=== PATIENT | female | born 1980 | race Caucasian/White ===

== ENCOUNTER 2018-09-13 05:46 | Inpatient (IN) | payer OTHER ==
[2018-09-12 09:38] VITALS: BMI 38.3
[2018-09-13] VITALS (31 sets, daily range): BP systolic 117–136; BP diastolic 55–82; PULSE 65–96; RESP 14–24; Ht 170.2 cm; Wt 114.3 kg
[~2018-09-13] VITALS: Ht 170.2 cm; Wt 114.3 kg
--- NOTE | 2018-09-13 06:48 | HPN ---
Date/Time of Note Date/Time of Note DATE: 09/13/18 TIME: 06:48 Interval H&P Admission Note Pt. seen H&P reviewed: No system changes ROSA TOBAR MD Sep 13, 2018 06:48
[2018-09-13] MEDS ORDERED: GELATIN SIZE 100 SPONGE ONE (06:50)
[2018-09-13] MEDS ORDERED: THROMBIN (BOVINE) 5,000 UNIT VIAL TP ONE (06:51)
[2018-09-13] MEDS ORDERED: BUPIVACAINE 0.25% (MPF) 30 ML INJ ONE (06:51)
[2018-09-13] MEDS ORDERED: POLYMYXIN/BACITRACIN 1L IRRIG ONE (06:51)
[2018-09-13] MEDS ORDERED: LYR75 PO (06:55)
[2018-09-13] MEDS ORDERED: TRAZ-111 PO (06:55)
[2018-09-13] MEDS ORDERED: AMPH20CA PO (06:56)
[2018-09-13] MEDS ORDERED: ALBU18HF INHALATION (06:57)
[2018-09-13] MEDS ORDERED: ROCURONIUM 50 MG INJ ONE ×2 (07:00→07:17)
[2018-09-13] MEDS ORDERED: CEFAZOLIN 2 GM/50 ML (PMX) 50 ML IVPB ONE (07:00)
[2018-09-13] MEDS ORDERED: LACTATED RINGER'S 1,000 ML IV SCH ×2 (07:00)
--- NOTE | 2018-09-13 07:04 | PREAC ---
Date/Time of Note Date/Time of Note DATE: 09/13/18 TIME: 07:02 Anesthesia Eval and Record Evaluation Time Pre-Procedure Interview DATE: 09/13/18 TIME: 07:02 Age 38 Sex female NPO: 8 hrs Preoperative diagnosis stenosis Planned procedure [id number] decompression Past Medical History Past Medical History: Includes Pulm: Asthma Neuro: Peripheral neuropathy Musculoskeletal: Other (ADD ) Surgery & Anesthesia Issues No known issue Meds Anticoagulation: No Beta Nayeli within 24 hr: No Reason Beta Nayeli not given: Pt. not on B-Nayeli Reported Medications Albuterol Sulfate* (Ventolin HFA*) 18 Gm Hfa.aer.ad, 2 PUFF INHALATION Q4H, #1 INHALER 09/13/18 Dextroamphetamine-Amphetamine (Adderall XR) 20 Mg Capsr, 74 MG PO DAILY, CAP 09/13/18 Pregabalin* (Lyrica*) 75 Mg Capsule, 75 MG PO BID, CAP 09/13/18 Trazodone Hcl* (Trazodone Hcl*) 50 Mg Tablet, 50 MG PO QHS, #30 TAB 09/13/18 Current Medications Cefazolin Sodium/ Dextrose 50 ml @ 100 mls/hr PREOP ONCE IVPB Last administered on 09/13/18at 06:45; Admin Dose 100 MLS/HR; Start 09/13/18 at 07:00; Stop 09/13/18 at 07:29 Lactated Ringer's 1,000 ml @ 25 mls/hr Q24H IV Last administered on 09/13/18at 06:46; Admin Dose 25 MLS/HR; Start 09/13/18 at 07:00 Lactated Ringer's 1,000 ml @ 25 mls/hr Q24H IV Last administered on 09/13/18at 06:47; Admin Dose 25 MLS/HR; Start 09/13/18 at 07:00 Meds reviewed: Yes Allergies Coded Allergies: amoxicillin (Verified Allergy, Mild, 09/13/18) hydrocodone (Verified Allergy, Mild, STARK, 09/13/18) oxycodone (Verified Allergy, Mild, STARK, 09/13/18) erythromycin base (Verified Allergy, Unknown, STARK, 09/13/18) latex (Verified Allergy, Unknown, itchy,burning, 09/13/18) Allergies Reviewed: Yes Labs/Studies Labs Reviewed: Reviewed by anesthesiologist Blood Bank Test 09/13/18 05:47 Blood Product Summary Counts test: Negative Pre-procedure Exam Last vitals Vital Signs Date Temp Pulse Resp B/P (MAP) Pulse Ox O2 O2 Flow FiO2 Time Delivery Rate 09/13/18 97.9 72 18 120/65 98 Room Air 06:49 (83) Airway: Adequate mouth opening, Adequate thyromental dist Mallampati: Mallampati I Teeth: Normal Lung: Normal Heart: Normal ASA Physical Status ASA physical status: 2 Emergency: None Pre-operative Attestations Prior to commencing anesthesia and surgery, the patient was re-evaluated, there was verification of: *The patient's identity *The results of appropriate recent lab work and preoperative vital signs *The above evaluation not changing prior to induction *Anesthetic plan, risk benefits, alternative and complications discussed with patient/family; questions answered; patient/family understands, accepts and wishes to proceed. RICK JACKMAN DO Sep 13, 2018 07:04
[2018-09-13] MEDS ORDERED: SUCCINYLCHOLINE CHLORIDE 100 MG/5 ML SYG IV ONE (07:06)
[2018-09-13] MEDS ORDERED: MIDAZOLAM 1 MG/ML 2 ML INJ ONE (07:06)
[2018-09-13] MEDS ORDERED: PROPOFOL 20 ML ONE (07:06)
[2018-09-13] MEDS ORDERED: LIDOCAINE 1% (MDV) 20 ML INJ ONE (07:09)
[2018-09-13] MEDS ORDERED: DEXAMETHASONE 4 MG/ML 5 ML INJ ONE (07:18)
[2018-09-13] MEDS ORDERED: ONDANSETRON 4 MG INJ ONE (07:18)
[2018-09-13] MEDS ORDERED: FENTAnyl 50 MCG/ML VIAL ONE (08:54)
[2018-09-13] MEDS ORDERED: SUGAMMADEX SODIUM 200 MG/2 ML VIAL IV ONE (09:05)
--- NOTE | 2018-09-13 09:59 | PAC ---
Date/Time of Note Date/Time of Note DATE: 09/13/18 TIME: 09:59 Post-Anesthesia Notes Post-Anesthesia Note Last documented vital signs Vital Signs Date Temp Pulse Resp B/P (MAP) Pulse Ox O2 O2 Flow FiO2 Time Delivery Rate 09/13/18 98 100 18 123/59 98 Room Air 1006 Activity: WNL Respiratory function: WNL Cardiovascular function: WNL Mental status: Baseline Pain reasonably controlled: Yes Hydration appropriate: Yes Nausea/Vomiting absent: Yes RICK JACKMAN DO Sep 13, 2018 09:59
--- NOTE | 2018-09-13 10:17 | SIPON ---
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
[2018-09-13] MEDS ORDERED: BETHANECHOL 25 MG TAB PO PRN (10:30)
[2018-09-13] MEDS ORDERED: MEPERIDINE 25 MG INJ IV PRN (10:30)
[2018-09-13] MEDS ORDERED: NALOXONE (0.4 MG/ML) INJ IV PRN ×2 (10:30)
[2018-09-13] MEDS ORDERED: hydrALAzine 20 MG INJ IV PRN (10:30)
[2018-09-13] MEDS ORDERED: PROCHLORPERAZINE 10 MG TAB PO PRN (10:30)
[2018-09-13] MEDS ORDERED: LEVALBUTEROL (NEB) 0.63 MG/3 ML AMP HHN PRN (10:30)
[2018-09-13] MEDS ORDERED: ALBUTEROL 0.083% (NEB) 2.5 MG/3 ML AMP HHN PRN (10:30)
[2018-09-13] MEDS ORDERED: EPHEDrine 25 MG/5 ML SYG IV PRN (10:30)
[2018-09-13] MEDS ORDERED: DIAZEPAM 5 MG/ML SYG IM PRN (10:30)
[2018-09-13] MEDS ORDERED: METOCLOPRAMIDE 10 MG INJ IV PRN (10:30)
[2018-09-13] MEDS ORDERED: CEPASTAT LOZENGE MT PRN (10:30)
[2018-09-13] MEDS ORDERED: ZOLPIDEM 5 MG TAB PO PRN (10:30)
[2018-09-13] MEDS ORDERED: MIDAZOLAM 1 MG/ML 2 ML INJ IV PRN (10:30)
[2018-09-13] MEDS ORDERED: HALOPERIDOL 5 MG INJ IV PRN (10:30)
[2018-09-13] MEDS ORDERED: LABETALOL HCL 20MG INJ IV PRN (10:30)
[2018-09-13] MEDS ORDERED: ONDANSETRON 4 MG INJ IV PRN ×2 (10:30)
[2018-09-13] MEDS ORDERED: HYDROmorphONE 1 MG/5 ML IV SYRINGE IV PRN ×3 (10:30)
[2018-09-13] MEDS ORDERED: ACETAMINOPHEN 325 MG TAB PO PRN (10:30)
[2018-09-13] MEDS ORDERED: DIAZEPAM 5 MG TAB PO PRN (10:30)
[2018-09-13] MEDS ORDERED: FENTAnyl 50 MCG/ML VIAL IV PRN ×2 (10:30)
[2018-09-13] MEDS ORDERED: ALBUMIN HUMAN 5% 250 ML IV PRN (10:30)
[2018-09-13] MEDS ORDERED: AL HYDROX/MG HYDROX/SIMETH 30 ML CUP PO PRN (10:30)
[2018-09-13] MEDS ORDERED: RACEPINEPHRINE 2.25%(NEB) 0.5 ML AMP HHN ONE (10:30)
[2018-09-13] MEDS ORDERED: DIPHENHYDRAMINE 50 MG CAP PO PRN (10:30)
[2018-09-13] MEDS ORDERED: TRIMETHOBENZAMIDE 100 MG/ML VIAL IM PRN ×2 (10:30)
[2018-09-13] MEDS ORDERED: NACL 0.9% 3 ML SYG IV SCH (10:30)
[2018-09-13] MEDS ORDERED: LEVALBUTEROL (NEB) 1.25 MG/0.5 ML AMP HHN PRN (10:30)
[2018-09-13] MEDS: HYDROmorphONE 0.2 MG/ML PCA IV SCH (10:38)
[2018-09-13] MEDS: DIPHENHYDRAMINE 50 MG INJ IV PRN ×2 (10:39→12:10)
[2018-09-13] MEDS: CEFAZOLIN 1 GM/50 ML (PMX) 50 ML IVPB SCH ×2 (11:17→17:57)
[2018-09-13] MEDS: FENTAnyl 50 MCG/ML VIAL IV PRN ×2 (12:53→13:00)
[2018-09-13] MEDS: DEXTROSE 5%-0.45% NACL 1,000 ML IV SCH ×2 (13:23→20:04)
[2018-09-13] MEDS ORDERED: ALBUTEROL 18 GM INHALER INH PRN (14:00)
[2018-09-13] MEDS: ALBUTEROL HFA 8 GM INHALER INH PRN ×2 (18:04→20:51)
--- NOTE | 2018-09-13 19:27 | OPR ---
DATE OF OPERATION: 09/13/2018 PREOPERATIVE DIAGNOSIS: Recurrent disk herniation, L4-L5 on the left. POSTOPERATIVE DIAGNOSIS: Recurrent disk herniation, L4-L5 on the left. OPERATIONS PERFORMED: 1. Redo left hemilaminotomy, L4. 2. Redo microdiskectomy, L4-L5 on the left. 3. Medial facetectomy and foraminotomy, L4-L5 on the left. 4. Revision of scar (6 cm). 5. Lateral localized lumbar radiographs (2). 6. Intraoperative nerve monitoring (3 hours). SURGEON: Fritz Cano MD ANESTHESIOLOGIST AND CRITICAL CARE: AIDAN Lewis ANESTHESIA: General endotracheal. ANESTHESIOLOGIST: Jose Roberto Kebede DO ESTIMATED BLOOD LOSS: 30 mL, none replaced. DRAINS: Two medium Hemovac drains employed. COMPLICATIONS: None. PERTINENT HISTORY AND PHYSICAL: This is a 38-year-old female who sustained injury to her back in the course of employment on 02/23/2017. She had appropriate conservative care thereafter and ultimately underwent lumbar surgery elsewhere for a disk herniation at L4-L5 on the left. She had continuing p ostoperative back and left leg pain, which was unrelieved by postoperative management, and a postoper ative MRI scan demonstrated a recurrent disk herniation at L4-L5 on the left. Treatment options disc ussed with the patient, she elected to proceed with surgery. OPERATIVE FINDINGS AT SURGERY: A small to moderate left paracentral herniation at L4-L5 was confirme d. The baseline intraoperative nerve monitoring revealed a decrease in the left L4 potential 35%, th e left L5 potential of 45%, and the left S1 potential of 20%. These all returned to normal at the co mpletion of surgery. OPERATIVE PROCEDURE: With the patient in supine position after satisfactory induction of general end otracheal anesthesia by Dr. Kebede, the patient was turned to the prone kneeling position over the Clare frame. All pressure points were carefully padded. Back was prepped and draped in the usual sterile fashion. Athrombic pumps were applied to the legs below the knees to prevent venous stasis during and after procedure. An indwelling Angel catheter was also placed preoperative to facilitate bladder drainage during and after procedure. Two spinal needles were placed next to what was felt to be the L4 and L5 spinous processes. Lateral radiograph was taken, which confirmed anatomic localiza tion. A 6 cm incision was carried out in the midline, incorporating previous lumbar scar through ski n and subcutaneous tissue to deep fascia. Superficial retractors were placed and hemostasis secured with electrocautery. Throughout the procedure, copious amounts of antibacterial irrigating solution was used to periodically irrigate the wound. The fascia was incised in midline with a hot knife and unilateral subperiosteal dissection carried out at L4 on the left. Deep retractors were placed, and deep hemostasis secured with electrocautery. A second intraoperative radiograph was taken with deep retractor at what was felt to be the L4-L5 interspace and was confirmed with second x-ray. A redo le ft hemilaminotomy of L4 was then carried out using Leksell rongeur, Kerrison punches, and curettes. Ligamentum flavum was excised with sharp dissection. The operating microscope was then moved into pl mary. A medial facetectomy and foraminotomy was accomplished using small hand osteotome, mallet, Amato purvi punches, and curettes. The L5 root on the left was then mobilized medially and protected with Mary 'Angelica nerve retractor using microdissection technique. This revealed a herniation of the L4-L5 dis k on the left. A 15 blade knife was used to cut a rectangular window in the annulus and posterior lo ngitudinal ligament, and multiple degenerative disk fragments were harvested with pituitary rongeurs and sent to laboratory for pathologic study. Additional fragments were harvested using Lauryn curet rm. A thorough search of the floor of the canal was made with an arthroscopic probe. No additional fragments were encountered. The epidural hemostasis was secured with bipolar electrocautery on low setting. The anesthesiologist was then asked to perform a Valsalva maneuver at 40 mmHg and no spinal fluid was noted. The wound was then closed in layers over 2 medium Hemovac drains, one below the fa scia, one above the fascia using #1 Vicryl [id number] approximating sutures in deep paralumbar m usculature and deep fascia of back, 2-0 Vicryl sutures on the subcutaneous tissue, and a 4-0 Vicryl s ubcuticular cosmetic closing suture on the skin. Dermabond and sterile compressive dressings were ap plied. The patient tolerated procedure well, was then turned to the supine position onto her bed and extubated by Dr. Kebede. She was transported to the recovery room in satisfactory condition. At the conclusion of procedure, sponge, instrument, and needle counts were all correct. NEED FOR DIRECTOR OF CAREER RESOURCES: During this spinal surgical procedure, my chef's assistant was used to retract and protect the spinal nerves and dural sac. My chef's assistant also employed the suction catheters to ev acuate blood from the surgical field to improve visualization of the neural structures. The assistan t was medically necessary to facilitate the completion of the surgery in a safe and expeditious maría r. [facility] regulations, as well as hospital bylaws, preclude the use of non-licensed [facility] care personnel such as operating room technicians, to perform these functions. Throughout the procedure, neural monitoring was carried out by Cathy monitoring including EMG, SSEP , and MEP monitoring of the L3, L4, L5, and S1 nerve roots bilaterally along with spinal cord potenti als. These were interpreted in real time by Dr. Red Johnson. Dictated By: FRITZ CNAO MD TM/NTS Conf#: [id number] DID#: [id number] CC: NATHANAEL HIGGINS MD; Angely BERMUDEZ;*End*
[2018-09-13] MEDS: RANITIDINE 150 MG TAB PO SCH (20:18)
[2018-09-13] MEDS: PREGABALIN 75 MG CAP PO SCH (20:18)
[2018-09-13] MEDS: traZODone 50 MG TAB PO SCH ×2 (20:46→22:08)
--- NOTE | 2018-09-14 00:07 | CONS ---
DATE OF ADMISSION: 09/13/2018 DATE OF CONSULTATION: 09/13/2018 Thank you, Dr. Tobar, for asking me to participate in medical management of this patient. REASON FOR CONSULTATION: To manage her asthma. HISTORY OF PRESENT ILLNESS: This 38-year-old female was injured at work on 02/23/2017. She develope d low back pain with radiation down her left leg and occasionally into her right leg. She did underg o a surgery on 05/19/2017; however, her back pain recurred, and she is now postop re-do of a microdis kectomy at L4 to L5 on the left. She was diagnosed with a recurrent HNP at the L4 to L5 level on the left. The patient is now in the recovery room. She is awake and alert. She is not having any ches t pain or shortness of breath. Her incisional pain is coming under control. She is having some inte rmittent left leg pain. CURRENT MEDICATIONS: The patient takes the following medications: 1. Albuterol 2 puffs q.4h. p.r.n. 2. Adderall XR 20 mg a day p.r.n. 3. Lyrica 75 mg twice a day. 4. Trazodone 50 mg at bedtime. PAST MEDICAL HISTORY: Remarkable for asthma. ALLERGIES: 1. HYDROCODONE. 2. AMOXICILLIN. 3. AZITHROMYCIN. 4. OXYCODONE. PAST SURGICAL HISTORY: Knee arthroscopy, lumbar spine decompression. PHYSICAL EXAMINATION: GENERAL: At this time reveals a well-developed female in no apparent distress. She is awake and pj rt and her pain is under control. VITAL SIGNS: Blood pressure 120/65, heart rate 72, temperature 97.9, O2 saturation 98% on room air. HEENT: Head normocephalic. Eyes: Extraocular muscles intact. Pupils equal, round, reactive to lig ht. Nose and mouth are normal. NECK: Supple. No neck vein distention. LUNGS: Clear to auscultation. HEART: Regular rhythm. No murmurs, gallops or rubs. ABDOMEN: Soft, nontender. EXTREMITIES: No peripheral edema. IMPRESSION: This patient is now postop lumbar spine surgery. She is awake and alert. She denies ch est pain or shortness of breath and seems comfortable. I will manage the patient's asthma and insomn ia. PLAN: 1. Resume some routine medications. 2. Check labs in the morning. 3. Postop lumbar spine surgery protocol. 4. I will follow the patient along with you medically. Dictated By: NATHANAEL HIGGINS MD, ND/LEIDA Conf#: [id number] DID#: [id number] CC: ROSA TOBAR MD;*EndCC*
[2018-09-14] MEDS: CEFAZOLIN 1 GM/50 ML (PMX) 50 ML IVPB SCH ×2 (00:17→05:36)
[2018-09-14] MEDS: HYDROmorphONE 0.2 MG/ML PCA IV SCH (00:35)
[2018-09-14] MEDS: ALBUTEROL HFA 8 GM INHALER INH PRN ×3 (00:47→08:56)
[2018-09-14] MEDS: DEXTROSE 5%-0.45% NACL 1,000 ML IV SCH ×2 (04:06→16:04)
[2018-09-14 07:26] VITALS: BP 110/60; PULSE 74; RESP 18
[2018-09-14] MEDS ORDERED: BETHANECHOL 25 MG TAB PO PRN (08:00)
[2018-09-14] MEDS: FERROUS SULFATE (EC) 325 MG TAB PO SCH ×2 (08:56→14:23)
[2018-09-14] MEDS: PREGABALIN 75 MG CAP PO SCH (08:57)
[2018-09-14] MEDS: RANITIDINE 150 MG TAB PO SCH (08:57)
[2018-09-14] MEDS: traMADol 50 MG TAB PO PRN ×2 (08:58→17:31)
[2018-09-14] MEDS ORDERED: DOCUSATE SODIUM 100 MG CAP PO SCH (09:00)
[2018-09-14] MEDS ORDERED: ASCORBIC ACID 500 MG TAB PO SCH (09:00)
--- NOTE | 2018-09-14 09:24 | CONS ---
Assessment/Plan Assessment/Plan Hospital Course (Demo Recall) 1. Patient is 1 day postop lumbar spine surgery. She is afebrile. Her vital signs are stable and she is doing well. She will start physical therapy today as tolerated. Consultation Date/Type/Reason Admit Date/Time Sep 13, 2018 at 05:46 Initial Consult Date Date/Time of Note DATE: 09/14/18 TIME: 09:23 24 HR Interval Summary Free Text/Dictation This patient is now 1 day postop a lumbar spine surgery. She is sitting up eating breakfast. She has no complaints. Constitutional: no complaints, improved Exam/Review of Systems Exam Vitals Vital Signs Date Temp Pulse Resp B/P (MAP) Pulse Ox O2 O2 Flow FiO2 Time Delivery Rate 09/14/18 98.0 74 18 110/60 98 Room Air 07:26 (77) 09/13/18 2.0 16:10 Intake and Output 09/13/18 09/13/18 09/14/18 1515:00 23:00 07:00 IntakeIntake Total 2250 ml 1260 ml 1650 ml OutputOutput Total 1100 ml 4700 ml 3205 ml BalanceBalance 1150 ml -3440 ml -1555 ml Constitutional: alert, oriented, well developed Respiratory: clear to auscultation Cardiovascular: regular rate and rhythm Gastrointestinal: soft, non-tender Musculoskeletal: nl extremities to inspection Results Result Diagram: 09/14/18 0423 09/14/18 0423 Results 24hrs Laboratory Tests Test 09/14/18 04:23 09/14/18 06:47 Hemoglobin 12.4 Hematocrit 37.5 Sodium Level 139 Potassium Level 3.8 Chloride Level 105 Carbon Dioxide Level 25 Anion Gap 9 Blood Urea Nitrogen 9 Creatinine 0.53 Est Glomerular Filtrat Rate mL/min > 60 Glucose Level 123 Calcium Level 8.8 Lab Scanned Report REFERENCE LAB Medications Medication Current Medications Dextrose/Sodium Chloride 1,000 ml @ 100 mls/hr Q10H IV Last administered on 09/14/18at 04:06; Admin Dose 100 MLS/HR; Start 09/13/18 at 10:04 Zolpidem Tartrate (Ambien) 5 mg HS PRN PO .INSOMNIA; Start 09/13/18 at 10:30 Prochlorperazine (Compazine) 10 mg Q4H PRN PO NAUSEA/VOMITING; Start 09/13/18 at 10:30 Trimethobenzamide HCl (Tigan) 200 mg Q4H PRN IM NAUSEA/VOMITING; Start 09/13/18 at 10:30 Ondansetron HCl (Zofran Inj) 4 mg Q6H PRN IV NAUSEA/VOMITING; Start 09/13/18 at 10:30 Al Hydrox/Mg Hydrox/Simethicone (Mag-Al Plus) 15 ml Q4H PRN PO .CONSTIPATION; Start 09/13/18 at 10:30 Docusate Sodium (Colace) 100 mg BID PO Last administered on 09/14/18 08:57; Admin Dose 100 MG; Start 09/14/18 at 09:00 Acetaminophen (Tylenol Tab) 650 mg Q4H PRN PO TEMP GREATER THAN 101F OR [place]; Start 09/13/18 at 10:30 Ascorbic Acid (Vitamin C) 1,000 mg BID PO Last administered on 09/14/18 08:57; Admin Dose 1,000 MG; Start 09/14/18 at 09:00 Ferrous Sulfate (Ferrous Sulfate (Ec)) 325 mg TID PO Last administered on 09/14/18 08:56; Admin Dose 325 MG; Start 09/14/18 at 09:00 Ranitidine HCl (Zantac) 150 mg BID PO Last administered on 09/14/18 08:57; Admin Dose 150 MG; Start 09/13/18 at 21:00 Diazepam (Valium) 5 mg Q4H PRN PO .MUSCLE SPASM; Start 09/13/18 at 10:30 Diazepam (Valium) 5 mg Q4H PRN IM .MUSCLE SPASM; Start 09/13/18 at 10:30 Phenol (Cepastat Lozenge) 1 lozenge PRN PRN MT .SORE THROAT; Start 09/13/18 at 10:30 Bethanechol Chloride (Urecholine) 25 mg PRN PRN PO .UNABLE TO VOID Last administered on 09/14/18 08:58; Admin Dose 25 MG; Start 09/13/18 at 10:30 Diphenhydramine HCl (Benadryl) 50 mg Q6H PRN PO .PRURITUS Last administered on 09/14/18at 00:20; Admin Dose 50 MG; Start 09/13/18 at 10:30 IV Flush (NS 3 ml) 3 ml PER PROTOCOL IV ; Start 09/13/18 at 10:30 Tramadol HCl (Ultram) 50 mg Q6H PRN PO MODERATE PAIN LEVEL 4-6 Last administered on 09/14/18 08:58; Admin Dose 50 MG; Start 09/13/18 at 10:30 Naloxone HCl (Narcan) 0.2 mg Q2M PRN IV RR 8 BREATHS/MIN OR LESS; Start 09/13/18 at 10:30 Hydromorphone HCl (Dilaudid RECREATION AIDE) Q4PCA IV Last administered on 09/14/18 00:35; Admin Dose 6 MG; Start 09/13/18 at 10:30 Pregabalin (Lyrica) 75 mg BID PO Last administered on 09/14/18 08:57; Admin Dose 75 MG; Start 09/13/18 at 21:00 Trazodone HCl (Desyrel) 50 mg QHS PO Last administered on 09/13/18 22:08; Admin Dose 50 MG; Start 09/13/18 at 21:00 Albuterol (Ventolin Hfa) 2 puff Q4H RESP THERAPY PRN INH SHORTNESS OF BREATH Last administered on 09/14/18 08:56; Admin Dose 2 PUFF; Start 09/13/18 at 17:00 Bethanechol Chloride (Urecholine) 25 mg PRN PRN PO UNABLE TO VOID; Start 09/14/18 at 08:00 NATHANAEL HIGGINS MD Sep 14, 2018 09:24
[2018-09-14 14:49] VITALS: BP 106/59; PULSE 79; RESP 18
--- NOTE | 2018-09-20 14:51 | DS ---
Date/Time of Note Date/Time of Note DATE: 09/20/18 TIME: 14:50 Discharge Summary Admission/Discharge Info Admit Date/Time Sep 13, 2018 at 05:46 Discharge Date/Time Sep 14, 2018 at 18:35 Discharge Diagnosis Recurrent disk herniation, L4-L5 on the left. Patient Condition: Good Hospital Course Patient did well postoperatively. Her diet and activity were advanced as tolerated. Her pain was well controlled. She was discharged home in good condition on postop day #1 with strict discharge and follow-up instructions. Home Meds Reported Medications Albuterol Sulfate* (Ventolin HFA*) 18 Gm Hfa.aer.ad, 2 PUFF INHALATION Q4H, #1 INHALER 09/13/18 Dextroamphetamine-Amphetamine (Adderall XR) 20 Mg Capsr, 74 MG PO DAILY, CAP 09/13/18 Pregabalin* (Lyrica*) 75 Mg Capsule, 75 MG PO BID, CAP 09/13/18 Trazodone Hcl* (Trazodone Hcl*) 50 Mg Tablet, 50 MG PO QHS, #30 TAB 09/13/18 Follow-up Plan Follow up with Dr. Cano in 1 to 2 weeks. Primary Care Provider Not On Staff Doctor DIMITRI LONGORIA Sep 20, 2018 14:51
--- NOTE | 2018-09-21 07:32 | PN ---
Date/Time of Note Date/Time of Note DATE: 09/21/18 TIME: 07:31 Assessment/Plan Lines/Catheters IV Catheter Type (from Nrsg): Peripheral IV Angel in Place (from Nrsg): Yes Subjective 24 Hr Interval Summary This is a redictation of a postop day #1 progress note for September 14, 2018. The patient is postop day #1 following a redo microdiscectomy L4-5 on the left. She is resting comfortably in bed. Neurovascular structures are intact distally. A.m. lab work is unremarkable. A Angel catheter is in place. Her Hemovac drainage is minimal, and will be discontinued. Her Angel catheter will be discontinued as well. She will be mobilized as tolerated by physical therapy, and discharged home when cleared by physical therapy. She has been given strict discharge precautions and instructions as well as follow-up arrangements. ROSA TOBAR MD Sep 21, 2018 07:32
== END 2018-09-14 18:35 | disposition home or self-care (01) | DRG 520 ==
LOC: REC 05:46 → EEVIPCON 05:46 → EDSTATUS 07:00 → MS1 15:50
PROVIDERS: ADMIT Orthopaedic Surgery; ATTEND Orthopaedic Surgery
PROC: 0SB20ZZ Excision of Lumbar Vertebral Disc, Open Approach (ICD-10-PCS; 2018-09-13)
PROC: 01NB0ZZ Release Lumbar Nerve, Open Approach (ICD-10-PCS; principal; 2018-09-13 07:00)
DX: M51.26 Other intervertebral disc displacement, lumbar region (principal); J45.909 Unspecified asthma, uncomplicated; G47.00 Insomnia, unspecified
CPT/HCPCS: 72020; 80048; 81003; 85014; 85018; 86850; 86900; 86901; 86920; 87086; 88304; 94664; 97110; 97116; 97161; 97530; J0690; J1100; J1170; J1200; J2250; J2405; J2765; J3010; J7042; J7120